=== PATIENT | male | born 1965 | race African-American/Black ===

== ENCOUNTER 2024-02-28 21:22 | Emergency (ER) | payer OTHER ==
[~2024-02-28] VITALS: Ht 180.3 cm; Wt 150.0 kg
[~2024-02-28 21:22] MED LIST: AMLODIPINE BESY10 MG PO; ASPIRIN 81 LOW81 MG; CALCI-CHE1 PO; CLONIDINE0.3 MG PO; EPLERENONE50 MG PO; IBUPROFEN600 MG PO; LIPITOR40 M1 PO; MAXZIDE PO; MINERI1; OMEPRAZOLE20 MG PO
[2024-02-28 21:43] VITALS: BP 192/98
[2024-02-28 21:59] LABS: EOS% 2.3 % (0-8); HEMATOCRIT 44.3 % (39.0-50.0); HEMOGLOBIN 14.5 g/dl (14.0-18.0); IMMATURE GRANULOCYTES 0.1 % (0.0-5.0); LYMPH% 37.6 % (15-41); MEAN CELL VOLUME 85.5 fL CALC (80.0-100.0); MEAN CORPUSCULAR HGB CONC 32.7 g/dL CAL (32.0-36.0); MONO% 11.1 % (2-13); NEUT# 3.21 thou/uL (1.82-7.42); NEUT% 46.9 % (42-76); RED BLOOD COUNT 5.18 mill/uL (4.70-6.10); RED CELL DISTRI WIDTH 12.3 % (11.5-15.5)
[2024-02-28 22:01] VITALS: BP 180/87
[2024-02-28] MEDS ORDERED: METOPROLOL TARTRATE 25 MG/TAB PO ONE (22:10)
[2024-02-28] MEDS ORDERED: METOPROLOL TARTRATE 5 MG/5 ML VIAL IV ONE (22:10)
[2024-02-28 22:12] LABS: ALBUMIN 4.5 g/dL (3.2-5.0); ALKALINE PHOSPHATASE 121 u/l (38-126); ANION GAP 12 (6-22 (CALC)); BILIRUBIN, TOTAL 0.6 mg/dL (0.2-1.3); CARBON DIOXIDE 30 mmol/l (22-30); CHLORIDE 103 mmol/l (95-108); POTASSIUM 3.9 mmol/l (3.5-5.1); SGOT/AST 45 u/l (17-59); SODIUM 141 mmol/l (137-146); TOTAL PROTEIN 7.4 g/dL (6.3-8.2)
[2024-02-28 22:21] LABS: D-DIMER 0.51 mg/L (0.19-0.60)
[2024-02-28 22:24] LABS: ACT PARTIAL THROMBO TIME 24.7 SECONDS (20.0-32.5)
[2024-02-28 22:26] LABS: BUN 11 mg/dL (9-20); BUN/CREATININE RATIO 12 (12-20 (CALC)); CREATININE 0.9 mg/dL (0.7-1.3); ESTIMATED GFR 98 ML/MIN (>=90 (CALC))
[2024-02-28 22:54] VITALS: BP 196/96
[2024-02-28 23:01] VITALS: BP 187/93
[2024-02-28 23:23] VITALS: BP 183/88
[2024-02-28 23:54] VITALS: BP 185/87
[2024-02-29 00:01] VITALS: BP 172/89
[2024-02-29] MEDS ORDERED: LOPRESSOR50 M1 PO (00:28)
[2024-02-29 00:41] VITALS: BP 172/89
== END 2024-02-29 00:45 | disposition home or self-care (01) | DRG 313 ==
LOC: ED 21:22
PROVIDERS: Family Medicine
DX: R07.9 Chest pain, unspecified (principal); I10 Essential (primary) hypertension; I25.10 Atherosclerotic heart disease of native coronary artery without angina pectoris; Z95.5 Presence of coronary angioplasty implant and graft